=== PATIENT | female | born 1995 | race Caucasian/White ===

== ENCOUNTER 2018-05-05 21:37 | Emergency (ER) | payer OTHER ==
[~2018-05-05] VITALS: Ht 170.2 cm; Wt 108.9 kg
[2018-05-05] MEDS ORDERED: BENADRYL50 MG (22:33)
== END 2018-05-06 07:56 | disposition home or self-care (01) ==
LOC: ER 21:37
DX: T78.49XA Other allergy, initial encounter (principal); R21 Rash and other nonspecific skin eruption